=== PATIENT | male | born 1975 | race Caucasian/White ===

== ENCOUNTER 2023-01-08 18:54 | Emergency (ER) | payer SELFPAY ==
[~2023-01-08] VITALS: Ht 350.5 cm; Wt 93.9 kg
[2023-01-08 18:55] VITALS: BP 144/90; PULSE 78; RESP 15; TEMP 97.3; O2SAT 98
--- NOTE | 2023-01-08 18:57 | NUR ---
[facility] B[facility] TO BED #3
--- NOTE | 2023-01-08 19:32 | NUR ---
Patient being evaluated by physician at bedside.
[2023-01-08] MEDS ORDERED: HYDROcodone/APAP 5/325 MG 1 TAB TAB PO ONE (19:40)
--- NOTE | 2023-01-08 19:48 | NUR ---
Patient resting in bed, A/Ox4, chest rise and fall symmetrical, no s/s of distress, on monitor.
[2023-01-08] MEDS ORDERED: oxyCODONE/APAP 5/325 MG 1 TAB TAB ONE (20:04)
[2023-01-08] MEDS ORDERED: CYCL-711 PO (20:07)
[2023-01-08] MEDS ORDERED: ACET-10509 PO (20:07)
[2023-01-08] MEDS ORDERED: IBUP-2213 PO (20:07)
[2023-01-08 21:14] VITALS: BP 128/74; PULSE 85; RESP 18; TEMP 97.6; O2SAT 99
== END 2023-01-08 21:15 | disposition home or self-care (01) ==
LOC: MED 18:54
DX: S40.011A Contusion of right shoulder, initial encounter (principal); M19.011 Primary osteoarthritis, right shoulder; Z79.899 Other long term (current) drug therapy; V23.49XA Other motorcycle driver injured in collision with car, pick-up truck or van in traffic accident, initial encounter; Y93.89 Activity, other specified; Y92.524 Gas station as the place of occurrence of the external cause; Y99.8 Other external cause status
CPT/HCPCS: 73030; 99283